=== PATIENT | male | born 1980 | race Caucasian/White ===

== ENCOUNTER 2018-08-19 17:56 | Emergency (ER) | payer OTHER ==
[2018-08-19] MEDS: ONDANSETRON 4 MG INJ IV (18:43)
[2018-08-19] MEDS: SOD CHLORIDE 0.9% 1,000 ML IV (18:53)
== END 2018-08-19 20:26 | disposition home or self-care (01) ==
LOC: E/R 17:56
DX: F12.920 Cannabis use, unspecified with intoxication, uncomplicated (principal); F41.9 Anxiety disorder, unspecified; R20.2 Paresthesia of skin; R40.2142 Coma scale, eyes open, spontaneous, at arrival to emergency department; R40.2362 Coma scale, best motor response, obeys commands, at arrival to emergency department; R40.2252 Coma scale, best verbal response, oriented, at arrival to emergency department
CPT/HCPCS: 96374; 99284-25